=== PATIENT | male | born 1950 | race Caucasian/White ===

== ENCOUNTER 2016-05-24 17:37 | Observation (INO) | payer OTHER, BC ==
[~2016-05-24] VITALS: Ht 180.3 cm; Wt 158.8 kg
[~2016-05-24 17:37] MED LIST: ADULT LOW DOSE81 M1 PO; ADVAIR 500/501 DISK PO; ALBUTEROL INHALER; ALBUTEROL SULF8.5 GM IH; ALDACTONE25 MG PO; ALLERGY RELIEF10 M1 PO; AMIODARONE HCL200 MG PO; AMOXICILLIN500 M1 PO; AMOXICILLIN500 MG PO; ARTIFICIAL TEAR15 M1 BOTH EYES; ARTIFICIAL TEAR15 M3 BOTH EYES; ASPIR 8181 M1 PO; ASPIR-LOW81 MG PO; ATIVAN0.5 MG PO; Aldactone PO; Ativan PO; B-121000 MC2 PO; B-COMPLEX-VITA1 EACH PO; BACLOFEN10 MG PO; BENGAY GREASEL113 GM TP; BUMETANIDE1 MG PO; BUMEX1 MG PO; BUMEX2 MG PO; BUPROPION HCL100 MG PO; BUPROPION HCL150 M2 PO; CLARITIN10 MG PO; CLOTRIMAZOLE15 GM TP; COLACE100 MG PO; CORDARONE200 MG PO; COUMADIN7.5 MG PO; COZAAR50 MG PO; CYANOCOBALAM1000 MCG PO; Claritin,Alavart PO; Coumadin,Jantoven PO; DESYREL12.5 MG PO; DuoNeb IH; FERROUS SULFAT325 MG PO; FINASTERIDE5 MG PO; FISH OIL 1,0001 EAC7 PO; FISH OIL300 MG PO; FLONASE16 G1 BOTH NARES; FLOVENT DISKUS1 DIS2 IH; FLUTICASONE PRO16 GM NS; FUROSEMIDE40 MG PO; Humibid LA,Mucinex PO; IRON325 M1 PO; IRON325 MG PO; LASIX40 MG PO; LEVOTHYROXINE25 MCG PO; LISINOPRIL20 MG PO; LISINOPRIL5 MG PO; LORATADINE10 M2 PO; LORAZEPAM0.5 MG PO; LORAZEPAM1 MG PO; LOSARTAN POTASS50 MG PO; LOVENOX150 MG/1 M SC; Lasix PO; Levaquin PO; MAALOX QUICK1000 MG PO; METOPROLOL SUCC25 MG PO; METOPROLOL SUCC50 MG PO; MONTELUKAST IH; NON-ASPIRIN EX500 M2 PO; OMEPRAZOLE20 MG PO; OMEPRAZOLE40 M1 PO; PERCOCET 5/31 TABLET PO; PRAVACHOL40 MG PO; PRAVASTATIN SOD20 MG PO; PRAVASTATIN SOD40 MG PO; PREVIDENT 500056 GM DT; PRILOSEC40 MG PO; PROAIR HFA8.5 GM IH; PROVENTIL HFA6.7 GM IH; PROVENTIL HFA6.7 GM PO; PROVENTIL,2.5 MG/3 M IH; PT/INR; ROXICODONE5 MG PO; SENNA8.6 M1 PO; SERTRALINE HCL100 MG PO; SERTRALINE HCL50 MG PO; SIMVASTATIN20 MG PO; SINGULAIR10 MG PO; SLEEP AID; SPIRIVA1 INHALATI IH; SPIRIVA1 INHALATI PO; SPIRONOLACTONE25 MG PO; SYMBICORT60 INHALAT IH; SYNTHROID25 MCG PO; Singulair PO; TESSALON PERLE100 MG PO; TESSALON200 MG PO; TOPROL XL50 MG PO; TRAMADOL HCL50 MG PO; TRAZODONE HCL50 MG PO; TYLENOL EXTRA500 MG PO; TYLENOL REGULA325 MG PO; Toprol XL PO; UCERIS9 MG IH; VENTOLIN HFA18 GM IH; VITAMIN B-121000 MCG PO; WARFARIN SODIU7.5 MG PO; WELLBUTRIN SR100 MG PO; WELLBUTRIN SR150 MG PO; WELLBUTRIN XL300 MG PO; WELLBUTRIN100 MG PO; ZOLOFT100 MG PO; ZOLOFT50 MG PO; Zestril,Prinivil PO; [UNRECOGNIZED DRUG - SUPPLY]; predniSONE PO
[2016-05-24 18:02] LABS: HEMATOCRIT 38.9 % (38.0-50.0); MCHC 32.6 G/DL (30.0-36.0); MCV 91.7 FL (86-99); MEAN PLAT.VOLUME 9.1 uM^3 (9.0-12.4); PLATELET COUNT 170 K/uL (156-360); RBC DIS.WIDTH-CV 13.9 % (11.8-14.6); RBC DIS.WIDTH-SD 45.7 % (39-53); RED BLOOD COUNT 4.24 M/uL (4.00-5.50); WHITE BLOOD COUNT 7.3 K/uL (4.1-10.2)
[2016-05-24 18:13] LABS: CHLORIDE 105 mEq/L (99-109); POTASSIUM 4.3 mEq/L (3.7-5.4); SODIUM 141 mEq/L (136-147)
[2016-05-24 18:15] LABS: GLUCOSE 121 mg/dL (70-99)
[2016-05-24 18:17] LABS: ANION GAP 7 MEQ/L (2-14)
[2016-05-24 18:19] LABS: GFR ESTIMATE (CALCULATED) > 59 mL/min/
[2016-05-24 18:20] LABS: UREA NITROGEN (BUN) 14 mg/dL (9-23)
[2016-05-24 18:24] LABS: TROP-I INTERPRETATION NEGATIVE; TROPONIN-I 0.01 ng/mL (0.0-0.30)
[2016-05-24 19:44] LABS: INTER. NORMALIZED RATIO 3.1; PROTHROMBIN TIME 32.2 (9.2-11.2); PTT 41.5 (25-32)
[2016-05-24] MEDS ORDERED: BUPROPION HCL100 MG PO (21:10)
[2016-05-24] MEDS ORDERED: BUMEX1 MG PO (21:11)
[2016-05-24] MEDS ORDERED: CORTISONE INJECTION (21:14)
[2016-05-24] MEDS ORDERED: LO-DOSE ASPIRIN81 M1 PO (21:15)
[2016-05-24] MEDS ORDERED: IPRATROPIUM BRO30 ML BOTH NARES (21:15)
[2016-05-24] MEDS ORDERED: MYCOSTATIN15 GM PO (21:16)
[2016-05-24] MEDS ORDERED: PRAVACHOL20 MG PO (21:16)
[2016-05-24] MEDS ORDERED: NITROSTAT0.4 MG SL (21:16)
[2016-05-24 21:31] VITALS: BP 143/67
[2016-05-24 23:24] VITALS: BP 135/64
[2016-05-25 01:06] LABS: TROP-I INTERPRETATION NEGATIVE; TROPONIN-I 0.02 ng/mL (0.0-0.30)
[2016-05-25 04:42] VITALS: BP 106/53
[2016-05-25 07:21] VITALS: BP 101/49
[2016-05-25 07:23] LABS: HEMATOCRIT 37.8 % (38.0-50.0); MCH 29.8 PG (29.0-34.0); MCHC 32.5 G/DL (30.0-36.0); MCV 91.5 FL (86-99); MEAN PLAT.VOLUME 9.7 uM^3 (9.0-12.4); PLATELET COUNT 132 K/uL (156-360); RBC DIS.WIDTH-CV 14.1 % (11.8-14.6); RBC DIS.WIDTH-SD 46.9 % (39-53); RED BLOOD COUNT 4.13 M/uL (4.00-5.50); WHITE BLOOD COUNT 6.4 K/uL (4.1-10.2)
[2016-05-25 07:27] LABS: INTER. NORMALIZED RATIO 2.4; PROTHROMBIN TIME 25.3 (9.2-11.2)
[2016-05-25 07:46] LABS: ALKALINE PHOSPHATASE 57 IU/L (3-129); ANION GAP 7 MEQ/L (2-14); CHLORIDE 105 MEQ/L (99-109); GFR ESTIMATE (CALCULATED) > 59 mL/min/; GLUCOSE 92 mg/dL (70-99); POTASSIUM 4.1 MEQ/L (3.7-5.4); SAMPLE HEMOLYSIS CHECK 0; SAMPLE ICTERIC CHECK 0; SAMPLE LIPEMIA CHECK 0; SODIUM 142 MEQ/L (136-147); TOTAL BILIRUBIN 0.8 MG/DL (0.0-1.0); UREA NITROGEN (BUN) 11 mg/dL (9-23)
[2016-05-25 07:56] LABS: TROP-I INTERPRETATION NEGATIVE; TROPONIN-I < 0.01 ng/mL (0.0-0.30)
[2016-05-25 11:51] VITALS: BP 124/54
== END 2016-05-25 14:58 | disposition home or self-care (01) ==
LOC: EME → EDBD 17:37 → EME 17:37 → 5WEST 19:59 → EDOF 19:59 → 5WEST 21:18
PROVIDERS: Emergency Medicine; Internal Medicine
DX: R07.89 Other chest pain (principal); I48.2 Chronic atrial fibrillation; J44.9 Chronic obstructive pulmonary disease, unspecified; Z86.711 Personal history of pulmonary embolism; J90 Pleural effusion, not elsewhere classified; G47.33 Obstructive sleep apnea (adult) (pediatric); E66.01 Morbid (severe) obesity due to excess calories; Z68.42 Body mass index [BMI] 45.0-49.9, adult; I25.10 Atherosclerotic heart disease of native coronary artery without angina pectoris; Z95.2 Presence of prosthetic heart valve; I35.0 Nonrheumatic aortic (valve) stenosis; Z95.0 Presence of cardiac pacemaker; Z87.891 Personal history of nicotine dependence; Z79.01 Long term (current) use of anticoagulants; Z82.49 Family history of ischemic heart disease and other diseases of the circulatory system; Z80.1 Family history of malignant neoplasm of trachea, bronchus and lung; Z88.5 Allergy status to narcotic agent; Z88.8 Allergy status to other drugs, medicaments and biological substances; Z88.6 Allergy status to analgesic agent; Z91.018 Allergy to other foods
CPT/HCPCS: 71010; 71020; 80048; 80053; 84484; 85027; 85610; 85730; 93005; 94640; 94799; 99202; 99281; 99284; G0378

== ENCOUNTER 2017-05-02 18:08 | Observation (INO) | payer OTHER ==
[~2017-05-02] VITALS: Ht 180.3 cm; Wt 153.2 kg
[~2017-05-02 18:08] MED LIST changes: +CORTISONE INJECTION; +IPRATROPIUM BRO30 ML BOTH NARES; +LO-DOSE ASPIRIN81 M1 PO; +MYCOSTATIN15 GM PO; +NITROSTAT0.4 MG SL; +PRAVACHOL20 MG PO
[2017-05-02 18:55] LABS: HEMATOCRIT 38.7 % (38.0-50.0); HEMOGLOBIN 12.4 G/DL (12.5-16.6); MCH 28.6 PG (29.0-34.0); MCV 89.4 FL (86-99); PLATELET COUNT 157 K/uL (156-360); RBC DIS.WIDTH-CV 13.9 % (11.8-14.6); RED BLOOD COUNT 4.33 M/uL (4.00-5.50); WHITE BLOOD COUNT 7.5 K/uL (4.1-10.2)
[2017-05-02 19:07] LABS: CHLORIDE 100 mEq/L (99-109); POTASSIUM 3.5 mEq/L (3.7-5.4); SODIUM 140 mEq/L (136-147)
[2017-05-02 19:08] LABS: INTER. NORMALIZED RATIO 7.3
[2017-05-02 19:09] LABS: GLUCOSE 111 mg/dL (70-99)
[2017-05-02 19:13] LABS: CREATININE 0.7 mg/dL (0.6-1.3); GFR ESTIMATE (CALCULATED) > 59 mL/min/ (58.99-99999)
[2017-05-02 19:14] LABS: UREA NITROGEN (BUN) 10 mg/dL (9-23)
[2017-05-02] MEDS ORDERED: PRAVASTATIN SOD40 MG PO (21:05)
[2017-05-02] MEDS ORDERED: NYSTATIN15 GM TP (21:08)
[2017-05-02] MEDS ORDERED: SPIRONOLACTONE25 MG PO (21:08)
[2017-05-02] MEDS ORDERED: PANTOPRAZOLE SO40 MG PO (21:09)
[2017-05-02] MEDS ORDERED: MONTELUKAST SOD10 MG PO (21:12)
[2017-05-02] MEDS ORDERED: LOSARTAN POTASS50 MG PO (21:17)
[2017-05-02] MEDS ORDERED: CETIRIZINE HCL5 MG PO (21:23)
[2017-05-02] MEDS ORDERED: ALBUTEROL2.5 MG/3 M IH (21:24)
[2017-05-02] MEDS ORDERED: BUMEX2 MG PO (21:28)
[2017-05-02] MEDS ORDERED: BUPROPION HCL150 M2 PO (21:29)
[2017-05-02] MEDS ORDERED: VITAMIN D31000 UNI2 PO (21:30)
[2017-05-02] MEDS ORDERED: B-121000 MC2 PO (21:31)
[2017-05-02] MEDS ORDERED: CALCIUM CARBON650 MG PO (21:34)
[2017-05-02] MEDS ORDERED: METOPROLOL SUCC50 MG PO (21:37)
[2017-05-02] MEDS ORDERED: ARTIFICIAL TEAR15 M1 BOTH EYES (21:40)
[2017-05-02] MEDS ORDERED: AMMONIUM LACTA224 GM TP (21:43)
[2017-05-02] MEDS ORDERED: SYMBICORT60 INHALAT IH (21:45)
[2017-05-02] MEDS ORDERED: COLACE100 MG PO (21:46)
[2017-05-02] MEDS ORDERED: DOXYCYCLINE HY100 MG PO (21:47)
[2017-05-02] MEDS ORDERED: AYR50 ML BOTH NARES (21:49)
[2017-05-02] MEDS ORDERED: ATHLETE'S FOOT71 GM TP (21:52)
[2017-05-02] MEDS ORDERED: SORE THROAT SP177 M1 MM (21:53)
[2017-05-02 22:48] VITALS: BP 116/57
[2017-05-03 03:30] VITALS: BP 113/53
[2017-05-03 06:03] LABS: HEMATOCRIT 37.4 % (38.0-50.0); HEMOGLOBIN 11.4 G/DL (12.5-16.6); MCH 27.5 PG (29.0-34.0); MCHC 30.5 G/DL (30.0-36.0); MCV 90.3 FL (86-99); PLATELET COUNT 163 K/uL (156-360); RBC DIS.WIDTH-CV 13.7 % (11.8-14.6); RBC DIS.WIDTH-SD 45.1 % (39-53); RED BLOOD COUNT 4.14 M/uL (4.00-5.50)
[2017-05-03 06:30] LABS: INTER. NORMALIZED RATIO 5.9
[2017-05-03 07:21] LABS: ALBUMIN 3.5 G/DL (3.2-4.8); ALKALINE PHOSPHATASE 62 IU/L (3-129); ALT (GPT) 5 IU/L (3-49); AST (GOT) 13 IU/L (2-34); CHLORIDE 98 MEQ/L (99-109); CREATININE 0.8 MG/DL (0.6-1.3); GFR ESTIMATE (CALCULATED) > 59 mL/min/ (58.99-99999); GLUCOSE 88 mg/dL (70-99); POTASSIUM 3.2 MEQ/L (3.7-5.4); SODIUM 143 MEQ/L (136-147); TOTAL BILIRUBIN 0.7 MG/DL (0.0-1.0); TOTAL PROTEIN 5.8 G/DL (6.4-8.3); UREA NITROGEN (BUN) 9 mg/dL (9-23)
[2017-05-03 07:57] VITALS: BP 127/61
[2017-05-03 11:18] VITALS: BP 117/80
[2017-05-03 15:39] VITALS: BP 113/55
[2017-05-04] MEDS ORDERED: NORCO 5/3251 TABLET PO (18:43)
[2017-05-04] MEDS ORDERED: FLEXERIL10 MG PO (18:43)
== END 2017-05-03 19:49 | disposition home or self-care (01) ==
LOC: EME 18:08 → EDOF 20:56 → 5WEST 20:56 → ENRESERV 20:59 → 5WEST 22:10
PROVIDERS: Emergency Medicine; Internal Medicine
DX: R79.1 Abnormal coagulation profile (principal); Z79.01 Long term (current) use of anticoagulants; I48.2 Chronic atrial fibrillation; I11.0 Hypertensive heart disease with heart failure; I50.9 Heart failure, unspecified; Z86.711 Personal history of pulmonary embolism; Z86.718 Personal history of other venous thrombosis and embolism; J44.9 Chronic obstructive pulmonary disease, unspecified; Z87.891 Personal history of nicotine dependence; I42.9 Cardiomyopathy, unspecified; I45.9 Conduction disorder, unspecified; Z95.0 Presence of cardiac pacemaker; G47.33 Obstructive sleep apnea (adult) (pediatric); Z95.2 Presence of prosthetic heart valve; F32.9 Major depressive disorder, single episode, unspecified; K21.9 Gastro-esophageal reflux disease without esophagitis; Z79.82 Long term (current) use of aspirin; E66.01 Morbid (severe) obesity due to excess calories; Z68.42 Body mass index [BMI] 45.0-49.9, adult; R60.0 Localized edema; Z99.81 Dependence on supplemental oxygen; Z96.653 Presence of artificial knee joint, bilateral; Z80.1 Family history of malignant neoplasm of trachea, bronchus and lung; Z82.49 Family history of ischemic heart disease and other diseases of the circulatory system; Z88.6 Allergy status to analgesic agent; Z88.5 Allergy status to narcotic agent
CPT/HCPCS: 71046; 80048; 80053; 83880; 85027; 85610; 93005; 93306; 94640 76; 94760; 94799; 99202; 99281; 99284; G0378; J1940

== ENCOUNTER 2017-05-04 16:28 | Emergency (ER) | payer OTHER, BC ==
[~2017-05-04] VITALS: Ht 180.3 cm; Wt 152.9 kg
[~2017-05-04 16:28] MED LIST changes: +ALBUTEROL2.5 MG/3 M IH; +AMMONIUM LACTA224 GM TP; +ATHLETE'S FOOT71 GM TP; +AYR50 ML BOTH NARES; +CALCIUM CARBON650 MG PO; +CETIRIZINE HCL5 MG PO; +DOXYCYCLINE HY100 MG PO; +MONTELUKAST SOD10 MG PO; +NYSTATIN15 GM TP; +PANTOPRAZOLE SO40 MG PO; +SORE THROAT SP177 M1 MM; +VITAMIN D31000 UNI2 PO
[2017-05-04] MEDS ORDERED: FLEXERIL10 MG PO (18:43)
[2017-05-04] MEDS ORDERED: NORCO 5/3251 TABLET PO (18:43)
[2017-05-04 22:15] VITALS: BP 131/65
== END 2017-05-04 22:35 | disposition home or self-care (01) ==
LOC: EME 16:28
DX: S39.012A Strain of muscle, fascia and tendon of lower back, initial encounter (principal); M46.96 Unspecified inflammatory spondylopathy, lumbar region; M47.897 Other spondylosis, lumbosacral region; M85.88 Other specified disorders of bone density and structure, other site; J44.9 Chronic obstructive pulmonary disease, unspecified; I11.0 Hypertensive heart disease with heart failure; I50.9 Heart failure, unspecified; E78.5 Hyperlipidemia, unspecified; K21.9 Gastro-esophageal reflux disease without esophagitis; F43.10 Post-traumatic stress disorder, unspecified; F32.9 Major depressive disorder, single episode, unspecified; W01.0XXA Fall on same level from slipping, tripping and stumbling without subsequent striking against object, initial encounter; Z87.891 Personal history of nicotine dependence; Z79.82 Long term (current) use of aspirin; Z79.01 Long term (current) use of anticoagulants; Z99.89 Dependence on other enabling machines and devices; Z99.81 Dependence on supplemental oxygen; Z95.828 Presence of other vascular implants and grafts; Z95.2 Presence of prosthetic heart valve; Z86.718 Personal history of other venous thrombosis and embolism; Z87.442 Personal history of urinary calculi; Z85.9 Personal history of malignant neoplasm, unspecified; Z88.5 Allergy status to narcotic agent; Z88.6 Allergy status to analgesic agent; F41.9 Anxiety disorder, unspecified
CPT/HCPCS: 72100; 99281; 99285; J2270

== ENCOUNTER 2017-07-03 13:10 | Inpatient (IN) | payer OTHER ==
[~2017-07-03] VITALS: Ht 177.8 cm; Wt 143.1 kg
[~2017-07-03 13:10] MED LIST changes: +FLEXERIL10 MG PO; +NORCO 5/3251 TABLET PO
[2017-07-03 13:52] LABS: HEMATOCRIT 39.9 % (38.0-50.0); HEMOGLOBIN 12.4 G/DL (12.5-16.6); MCH 27.9 PG (29.0-34.0); MCHC 31.1 G/DL (30.0-36.0); MCV 89.7 FL (86-99); PLATELET COUNT 165 K/uL (156-360); RBC DIS.WIDTH-CV 14.6 % (11.8-14.6); RBC DIS.WIDTH-SD 47.3 % (39-53); RED BLOOD COUNT 4.45 M/uL (4.00-5.50); WHITE BLOOD COUNT 7.6 K/uL (4.1-10.2)
[2017-07-03 14:06] LABS: CHLORIDE 104 mEq/L (99-109); POTASSIUM 4.2 mEq/L (3.7-5.4); SODIUM 140 mEq/L (136-147)
[2017-07-03 14:07] LABS: GLUCOSE 118 mg/dL (70-99)
[2017-07-03 14:11] LABS: GFR ESTIMATE (CALCULATED) > 59 mL/min/ (58.99-99999)
[2017-07-03 14:12] LABS: UREA NITROGEN (BUN) 13 mg/dL (9-23)
[2017-07-03 14:14] LABS: TROP-I INTERPRETATION NEGATIVE; TROPONIN-I < 0.01 ng/mL (0.0-0.30)
[2017-07-03 16:19] LABS: PTT 54.9 SEC (25-37)
[2017-07-03 16:34] LABS: INTER. NORMALIZED RATIO 6.4
[2017-07-03 19:58] LABS: APPEARANCE TURBID ((CLEAR)); COLOR BROWN ((YELLOW)); GLUCOSE (STRIP) NEGATIVE; LEUKOCYTES TRACE; NITRITE NEGATIVE; PROTEIN (STRIP) 100
[2017-07-03 19:59] LABS: BILIRUBIN NEGATIVE; BLOOD LARGE; KETONES NEGATIVE; UROBILINOGEN 0.2 MG/DL (0.2-1.0)
[2017-07-03 20:21] LABS: RED BLOOD CELLS 20-30 /HPF (0-5)
[2017-07-03 20:22] LABS: EPITHELIAL CELLS RARE /HPF; MUCUS NONE SEEN /LPF
[2017-07-03 20:23] LABS: BACTERIA 1+ /HPF; UCUL ADDED? YES
[2017-07-03 20:26] LABS: AMORPHOUS URATES CRYSTALS 3+
[2017-07-03] MEDS ORDERED: BUMETANIDE1 MG PO (21:16)
[2017-07-03] MEDS ORDERED: LOSARTAN POTASS25 MG PO (21:16)
[2017-07-03] MEDS ORDERED: PREDNISONE20 MG PO (21:30)
[2017-07-03] MEDS ORDERED: TRAZODONE HCL50 MG PO (21:30)
[2017-07-03 23:50] VITALS: BP 127/72
[2017-07-04 05:52] LABS: HEMATOCRIT 36.7 % (38.0-50.0); HEMOGLOBIN 11.5 G/DL (12.5-16.6); MCH 28.3 PG (29.0-34.0); MCHC 31.3 G/DL (30.0-36.0); MCV 90.2 FL (86-99); PLATELET COUNT 137 K/uL (156-360); RBC DIS.WIDTH-CV 14.6 % (11.8-14.6); RBC DIS.WIDTH-SD 48.4 % (39-53); RED BLOOD COUNT 4.07 M/uL (4.00-5.50); WHITE BLOOD COUNT 7.1 K/uL (4.1-10.2)
[2017-07-04 06:15] LABS: CHLORIDE 104 MEQ/L (99-109); CREATININE 1.2 MG/DL (0.6-1.3); GFR ESTIMATE (CALCULATED) > 59 mL/min/ (58.99-99999); POTASSIUM 4.1 MEQ/L (3.7-5.4); SODIUM 141 MEQ/L (136-147); UREA NITROGEN (BUN) 12 mg/dL (9-23)
[2017-07-04 06:25] LABS: GLUCOSE 87 mg/dL (70-99)
[2017-07-04 06:34] LABS: INTER. NORMALIZED RATIO 3.9
[2017-07-04 07:45] VITALS: BP 151/80
[2017-07-04 08:38] LABS: A/G RATIO 1.8 (1.1-1.8); ALBUMIN 3.5 G/DL (3.4-5.0); TOTAL PROTEIN 5.5 G/DL (6.4-8.2)
[2017-07-04 08:44] LABS: PROSTATIC SPEC. AG. 1.7 nG/mL (0-4.0)
[2017-07-04 09:06] LABS: ABS NEUTROPHIL COUNT 5.8; BASOPHILS 0.9 %; EOSINOPHIL ABS CT 0.1; EOSINOPHILS 0.9 % (0-5.0); LYMPHOCYTES 13.1 % (15.0-45.0); MONOCYTES 3.5 % (0-9.0); PLAT.SUFFICIENCY DECREASED; SEG.NEUTROPHILS 81.6 % (46.0-76.0); SMUDGE CELLS 0.9
[2017-07-04 11:49] VITALS: BP 146/74
[2017-07-04 15:47] VITALS: BP 137/64
[2017-07-04 19:55] VITALS: BP 123/59
[2017-07-04 23:59] VITALS: BP 159/76
[2017-07-05 04:12] VITALS: BP 132/62
[2017-07-05 06:11] LABS: HEMATOCRIT 36.5 % (38.0-50.0); HEMOGLOBIN 11.3 G/DL (12.5-16.6); MCH 27.8 PG (29.0-34.0); MCV 89.7 FL (86-99); PLATELET COUNT 139 K/uL (156-360); RBC DIS.WIDTH-CV 14.6 % (11.8-14.6); RBC DIS.WIDTH-SD 47.7 % (39-53); RED BLOOD COUNT 4.07 M/uL (4.00-5.50); WHITE BLOOD COUNT 6.9 K/uL (4.1-10.2)
[2017-07-05 07:35] VITALS: BP 168/76
[2017-07-05 07:58] LABS: ALBUMIN 3.04 G/DL (3.6-4.9); ALPHA-1 GLOBULIN 0.32 G/DL (0.15-0.40); ALPHA-2 GLOBULIN 0.67 G/DL (0.45-0.85); BETA-GLOBULIN 0.61 G/DL (0.65-1.15); GAMMA-GLOBULIN 0.85 G/DL (0.60-1.35)
[2017-07-05 09:21] LABS: INTER. NORMALIZED RATIO 1.9
[2017-07-05 11:00] VITALS: BP 132/61
[2017-07-05 15:07] VITALS: BP 120/60
[2017-07-05 23:33] VITALS: BP 126/58
[2017-07-06 04:56] VITALS: BP 148/72
[2017-07-06 06:10] LABS: HEMATOCRIT 37.8 % (38.0-50.0); HEMOGLOBIN 11.7 G/DL (12.5-16.6); MCH 27.9 PG (29.0-34.0); PLATELET COUNT 148 K/uL (156-360); RBC DIS.WIDTH-CV 14.6 % (11.8-14.6); RBC DIS.WIDTH-SD 47.8 % (39-53); WHITE BLOOD COUNT 6.8 K/uL (4.1-10.2)
[2017-07-06 06:33] LABS: INTER. NORMALIZED RATIO 1.9
[2017-07-06 09:06] VITALS: BP 158/77
[2017-07-06 11:34] VITALS: BP 119/59
[2017-07-06 15:53] VITALS: BP 129/63
[2017-07-06 19:55] VITALS: BP 136/63
[2017-07-07 00:03] VITALS: BP 137/61
[2017-07-07 03:29] VITALS: BP 120/63
[2017-07-07 06:35] LABS: INTER. NORMALIZED RATIO 1.7
[2017-07-07 07:06] LABS: CHLORIDE 94 MEQ/L (99-109); CREATININE 1.1 MG/DL (0.6-1.3); GFR ESTIMATE (CALCULATED) > 59 mL/min/ (58.99-99999); GLUCOSE 99 mg/dL (70-99); POTASSIUM 3.8 MEQ/L (3.7-5.4); SODIUM 141 MEQ/L (136-147); UREA NITROGEN (BUN) 11 mg/dL (9-23)
[2017-07-07 07:43] VITALS: BP 120/57
[2017-07-07 11:22] VITALS: BP 140/67
[2017-07-07 23:54] VITALS: BP 136/82
[2017-07-08 07:03] LABS: INTER. NORMALIZED RATIO 1.5
[2017-07-08 07:15] LABS: CHLORIDE 94 MEQ/L (99-109); GFR ESTIMATE (CALCULATED) > 59 mL/min/ (58.99-99999); GLUCOSE 118 mg/dL (70-99); POTASSIUM 3.8 MEQ/L (3.7-5.4); SODIUM 142 MEQ/L (136-147); UREA NITROGEN (BUN) 12 mg/dL (9-23)
[2017-07-08 07:50] VITALS: BP 133/76
[2017-07-08] MEDS ORDERED: CEFDINIR300 MG PO (11:55)
[2017-08-16] MEDS ORDERED: TOPROL XL50 MG PO (14:26)
[2017-08-16] MEDS ORDERED: BALANCE B-1001 EAC1 PO (14:27)
== END 2017-07-08 15:15 | disposition home health service (06) | DRG 377 ==
LOC: EME 13:10 → EDOF 22:00 → 5EAST 22:00 → ENRESERV 22:01 → 5EAST 23:40
PROVIDERS: Hospitalist; Internal Medicine; Physician Assistant
DX: K92.2 Gastrointestinal hemorrhage, unspecified (principal); J15.9 Unspecified bacterial pneumonia; N13.2 Hydronephrosis with renal and ureteral calculous obstruction; R79.1 Abnormal coagulation profile; I50.21 Acute systolic (congestive) heart failure; M84.48XA Pathological fracture, other site, initial encounter for fracture; I42.9 Cardiomyopathy, unspecified; G47.33 Obstructive sleep apnea (adult) (pediatric); I44.2 Atrioventricular block, complete; K21.9 Gastro-esophageal reflux disease without esophagitis; E66.01 Morbid (severe) obesity due to excess calories; I48.0 Paroxysmal atrial fibrillation; I48.2 Chronic atrial fibrillation; F32.9 Major depressive disorder, single episode, unspecified; N40.2 Nodular prostate without lower urinary tract symptoms; R31.0 Gross hematuria; E78.5 Hyperlipidemia, unspecified; R59.0 Localized enlarged lymph nodes; E11.9 Type 2 diabetes mellitus without complications; I11.0 Hypertensive heart disease with heart failure; I35.0 Nonrheumatic aortic (valve) stenosis; J43.9 Emphysema, unspecified; R09.02 Hypoxemia; Z96.653 Presence of artificial knee joint, bilateral; Z95.3 Presence of xenogenic heart valve; Z99.81 Dependence on supplemental oxygen; Z95.810 Presence of automatic (implantable) cardiac defibrillator; Z87.891 Personal history of nicotine dependence; Z87.442 Personal history of urinary calculi; Z86.718 Personal history of other venous thrombosis and embolism; Z86.711 Personal history of pulmonary embolism; Z79.899 Other long term (current) drug therapy; Z80.1 Family history of malignant neoplasm of trachea, bronchus and lung; Z79.51 Long term (current) use of inhaled steroids; Z79.01 Long term (current) use of anticoagulants; Z79.82 Long term (current) use of aspirin
CPT/HCPCS: 71046; 71260; 74177; 74420; 80048; 81003; 83605; 83880; 84153; 84165; 84484; 85007; 85027; 85610; 85730; 86850; 86900; 86901; 87040; 87086; 93005; 94640; 94640 76; 94660; 94760; 94799; 97530 GO; 99202; 99281; 99285; C2625; C9113; J0456; J0696; J1644; J2250; J7030; J7512

== ENCOUNTER → 2017-08-21 | Outpatient (CLI) | payer OTHER, BC ==
[~2017-08-21] VITALS: Ht 180.3 cm; Wt 138.2 kg
[~2017-08-21] MED LIST changes: +BALANCE B-1001 EAC1 PO; +CEFDINIR300 MG PO; +LOSARTAN POTASS25 MG PO; +PREDNISONE20 MG PO
== END | disposition home or self-care (01) ==
LOC: AMB 07:27
DX: N20.0 Calculus of kidney (principal); N40.1 Benign prostatic hyperplasia with lower urinary tract symptoms; N13.8 Other obstructive and reflux uropathy; E07.9 Disorder of thyroid, unspecified; E78.5 Hyperlipidemia, unspecified; Z86.718 Personal history of other venous thrombosis and embolism; Z86.711 Personal history of pulmonary embolism; Z95.828 Presence of other vascular implants and grafts; I10 Essential (primary) hypertension; K21.9 Gastro-esophageal reflux disease without esophagitis; M19.90 Unspecified osteoarthritis, unspecified site; Z95.4 Presence of other heart-valve replacement; Z96.653 Presence of artificial knee joint, bilateral
CPT/HCPCS: 74021; J2250